=== PATIENT | female | born 1965 | race Caucasian/White ===

== ENCOUNTER 2017-07-29 09:35 | Emergency (ER) | payer MEDICAID ==
[2017-07-29] MEDS ORDERED: fentaNYL 100 MCG/2 ML INJ IVP ONE (10:18)
[2017-07-29] MEDS ORDERED: KETOROLAC 15 MG/1 ML SDV IVP ONE (10:20)
[2017-07-29] MEDS ORDERED: LET GEL TOPICAL 1 EA SYR TP ONE (10:20)
--- NOTE | 2017-07-29 10:21 | EDPHY ---
H & P Stated Complaint: fall, L rib, L knee, R wrist pain Time Seen by Provider: 07/29/17 09:51 HPI/ROS: CHIEF COMPLAINT: trip and fall HISTORY OF PRESENT ILLNESS: 51-year-old female presents to the emergency department by private vehicle after mechanical trip and fall today while walking her dog. Patient reports falling onto her left side falling onto her elbow which dug into her left lateral chest wall. Pt reports she had immediate left sided rib pain, worse with movement and worse with deep breath. Pt states she struck her head against her hand as she fell. No LOC, she remembers the entire accident. Pt denies neck pain. Pt reports immediate nausea and lightheadedness after the fall. She got up after the fall and walked home, then drove herself to the ER. Pt with an abrasion to her left knee. Tetanus is up to date. She also complains of right wrist pain. She is right hand dominant. Not anticoagulated. REVIEW OF SYSTEMS: A comprehensive 10 point review of systems is otherwise negative aside from elements mentioned in the history of present illness. Source: Patient Exam Limitations: No limitations - Personal History LMP (Females 10-55): Over 28 Days Ago Current Tetanus Diphtheria and Acellular Pertussis (TDAP): Yes - Medical/Surgical History Hx Asthma: No Hx Chronic Respiratory Disease: No Hx Diabetes: No Hx Cardiac Disease: No Hx Renal Disease: No Hx Cirrhosis: No Hx Alcoholism: No Hx HIV/AIDS: No Hx Splenectomy or Spleen Trauma: No Other PMH: denies - Social History Smoking Status: Never smoked - Physical Exam Exam: General Appearance: Alert, no distress, talking appropriately, comfortable. Head: Atraumatic without scalp tenderness or obvious injury Eyes: Pupils equal, round, reactive to light, EOMI, no trauma, no injection. Ears: Clear bilaterally, no perforation, no hemotympanum Nose: Atraumatic, no rhinorrhea, no septal hematoma Neck: The cervical spine is non-tender and there is no pain or neurologic deficits with active range of motion. Cardiovascular: Heart is regular rate and rhythm without murmur. Good capillary refill all extremities. Chest: Left lower anterior lateral chest wall/rib tenderness to palpation. Atraumatic, equal bilateral breath sounds. Gastrointestinal: Soft, non-tender, non-distended. No rebound, guarding, or peritoneal signs. There is no evidence of external or internal trauma. Back:There is no thoracic or lumbar spine or paraspinal tenderness. Extremities: Right wrist with mild tenderness to snuff box. There is full active range of motion of the joints. Neurological: The patient has normal DTRs and non-focal Cranial nerves, motor, sensory, and cerebellar exam Skin: superficial abrasion to left knee. Constitutional: Initial Vital Signs Temperature (C) 36.7 C 07/29/17 09:38 Heart Rate 75 07/29/17 09:38 Respiratory Rate 20 07/29/17 09:38 Blood Pressure 124/87 H 07/29/17 09:38 O2 Sat (%) 95 07/29/17 09:38 O2 Delivery Mode Room Air Allergies/Adverse Reactions: No Known Allergies Allergy (Unverified 07/29/17 09:41) Home Medications: Medication Instructions Recorded Hydrocodone/APAP 5/325 [Grandy 1 tab PO Q4H PRN #14 tab 07/29/17 5/325] Medical Decision Making - Diagnostics Imaging Results: Imaging Impressions Ribs w/Chest X-Ray 07/29/17 10:18 Impression: Fractures of the left inferolateral 10th (and possible inferolateral 11th) ribs. There is no pleural effusion or pneumothorax. Wrist X-Ray 07/29/17 10:20 Impression: Negative left wrist radiographs. Imaging: I viewed and interpreted images myself ED Course/Re-evaluation: Right wrist x-ray shows no evidence of fracture, patient is placed in a thumb spica Velcro splint and given Ortho for follow-up. He patient has a left 10th and moving 11th rib fracture. No evidence of pneumothorax on chest x-ray. Patient was given a dose of IV Toradol. She is discharged home with an incentive spirometer and a prescription for Grandy. Patient has normal vital signs, no abdominal pain. She has been given return precautions and is comfortable with plan to be discharged home. Differential Diagnosis: The differential diagnosis for the patient's trauma included but was not limited to intracranial injury, long bone and pelvic bone fractures, spinal injury, intra-abdominal injury, and intra-thoracic injury. - Data Points Medications Given: Discontinued Medications Fentanyl (Sublimaze) 50 mcg IVP EDNOW ONE Stop: 07/29/17 10:19 Last Admin: 07/29/17 10:23 Dose: 50 mcg Ketorolac Tromethamine (Toradol) 15 mg IVP EDNOW ONE Stop: 07/29/17 10:21 Last Admin: 07/29/17 10:23 Dose: 15 mg Tetracaine/Epinephrine/Lidocaine (Let Gel Topical) 1 ea TP EDNOW ONE Stop: 07/29/17 10:21 Last Admin: 07/29/17 10:23 Dose: 1 ea Departure - Departure Disposition: Home, Routine, Self-Care Clinical Impression: Right wrist sprain Qualifiers: Encounter type: initial encounter Qualified Code(s): S63.501A - Unspecified sprain of right wrist, initial encounter Left rib fracture Qualifiers: Encounter type: initial encounter Rib fracture type: multiple ribs Fracture type: closed Qualified Code(s): S22.42XA - Multiple fractures of ribs, left side , initial encounter for closed fracture Minor head injury without loss of consciousness Qualifiers: Encounter type: initial encounter Qualified Code(s): S09.90XA - Unspecified injury of head, initial encounter Condition: Good Instructions: Wrist Injury (ED), Rib Fracture (ED), Head Injury (ED) Additional Instructions: Rest, ice to your sore areas. Wear velcro wrist splint for 5-7 days. Follow up with the orthopedist for any continued wrist pain in 5-7 days. Take 600mg of ibuprofen every 8 hours with food. Take norco for severe pain. Use incentive spirometer 10 times an hour while awake. Cough and deep breath frequently. Return to the emergency department for any forceful vomiting, confusion, altered gait, fevers, cough. Referrals: Neeraj Rojas MD [Medical Doctor] - As per Instructions (Orthopedist on-call) Terri Mckeon MD [Primary Care Provider] - Follow Up Only If Needed Prescriptions: Hydrocodone/APAP 5/325 [Grandy 5/325] 1 tab PO Q4H PRN #14 tab PRN Reason: Pain, Moderate
[2017-07-29 12:34] VITALS: BP 129/97; PULSE 71; RESP 16; TEMP 97.5; O2SAT 97
== END 2017-07-29 12:35 | disposition home or self-care (01) ==
DX: S22.42XA Multiple fractures of ribs, left side, initial encounter for closed fracture (principal); S63.501A Unspecified sprain of right wrist, initial encounter; S09.90XA Unspecified injury of head, initial encounter; W01.0XXA Fall on same level from slipping, tripping and stumbling without subsequent striking against object, initial encounter; Y99.8 Other external cause status; Y93.89 Activity, other specified
CPT/HCPCS: 96374; J1885; J3010; L3807

== ENCOUNTER 2017-08-03 16:15 | Emergency (ER) | payer MEDICAID ==
[2017-08-03 16:48] VITALS: TEMP 97.9
--- NOTE | 2017-08-03 17:44 | EDPHY ---
H & P Stated Complaint: DX rib fx last week from fall;today bloated w/sharp upper abd pain - Personal History LMP (Females 10-55): Post Menopausal Current Tetanus Diphtheria and Acellular Pertussis (TDAP): Yes - Medical/Surgical History Hx Asthma: No Hx Chronic Respiratory Disease: No Hx Diabetes: No Hx Cardiac Disease: No Hx Renal Disease: No Hx Cirrhosis: No Hx Alcoholism: No Hx HIV/AIDS: No Hx Splenectomy or Spleen Trauma: No Other PMH: denies - Social History Smoking Status: Never smoked Time Seen by Provider: 08/03/17 17:43 HPI/ROS: CHIEF COMPLAINT: epigastric abdominal pain HISTORY OF PRESENT ILLNESS: 51-year-old female arrives via private vehicle complaining of epigastric discomfort, right upper quadrant and right lower chest pain since this afternoon. She was seen emergency department 4 days ago after seen mechanical fall was noted to have a left sided rib fractures. She has been using her oxycodone as prescribed has also been using Dulcolax had a last bowel movement this morning. Passing gas as normal. No nausea or vomiting. No dyspnea. Pain is reproducible with palpation. PRIMARY CARE PROVIDER: REVIEW OF SYSTEMS: A ten point review of systems was performed and is negative with the exception of the items mentioned in the HPI PAST MEDICAL & SURGICAL HISTORY: No history of abdominal surgeries beyond C- section SOCIAL HISTORY: nonsmoker no drug use PHYSICAL EXAM (Prior to examination, patient consented to physical exam, hands were washed and my usual and customary physical exam procedures followed) 1) GENERAL: Well-developed, well-nourished, alert and oriented. Appears uncomfortable 2) HEAD: Normocephalic, atraumatic 3) HEENT: Pupils equal, round, reactive to light bilaterally. Sclera anicteric. 4) NECK: Full range of motion, no meningeal signs. 5) LUNGS: Clear auscultation bilaterally, no wheezes, no rhonchi, no retractions. 6) HEART: Regular rate and rhythm, no murmur, no heave, no gallop. 7) ABDOMEN: tender to palpation epigastrium and right upper quadrant, negative McBurney's, negative Rose's, negative Rovsing's, negative peritoneal sign, no signs of trauma. No crepitus. 8) MUSCULOSKELETAL: Moving all extremities, no focal areas of tenderness, no obvious trauma. No peripheral edema or discoloration. 9) BACK: No CVA tenderness, no midline vertebral tenderness, no fluctuance, no step-off, no obvious trauma, no visual or palpable abnormality. 10) SKIN: No rash, no petechiae. 11) Psychiatric: Patient is oriented X 3, there is no agitation. DIFFERENTIAL DIAGNOSIS: in no particular order including but not limited to acute cholecystitis, liver contusion, liver fracture, atelectasis, constipation , acute pancreatitis (Gabino Hooks) Constitutional: Initial Vital Signs Temperature (C) 36.6 C 08/03/17 16:45 Heart Rate 72 08/03/17 16:45 Respiratory Rate 18 08/03/17 16:45 Blood Pressure 135/89 H 08/03/17 16:45 O2 Sat (%) 98 08/03/17 16:45 O2 Delivery Mode Room Air Allergies/Adverse Reactions: No Known Allergies Allergy (Verified 08/03/17 16:44) Home Medications: Medication Instructions Recorded Hydrocodone/APAP 5/325 [[place] 1 tab PO Q4H PRN #14 tab 07/29/17 5/325] Medical Decision Making - Diagnostics Imaging Results: Imaging Impressions Abdomen CT 08/03/17 18:51 Impression: 1. Nondisplaced left 9th rib fracture (numbering with hypoplastic 12th ribs). 2. No other acute findings in the abdomen or pelvis. 3. Additional findings, as above. Findings discussed with Susana Hooks PA-C, on August 03, 2017 at 1939. Abdomen Ultrasound 08/03/17 18:52 Impression: 1. No acute findings 2. Mild fatty infiltration of the liver. 3. Additional findings as above. Findings discussed with Marie Hooks today at 2004 hours. Images reviewed by myself (Gabino Hooks) ED Course/Re-evaluation: 6:30 p.m.: Informed by the nurses that the patient had passed a large amount of flatus and is feeling improvement. I re-examined the patient at this time and she states that she is feeling improvement but still would like imaging studies. She remains tender to palpation right upper quadrant. 820 p.m.: Re-evaluation, discussed her negative imaging results. Re-examined her abdomen which is soft no guarding or rebound. I think the patient can be discharged. Doubt acute surgical abdominal pathology. Doubt acute cholecystitis, doubt liver contusion or fracture. She feels comfortable being discharged. (Gabino Hooks) I did not see this patient while she was in the emergency department. However her care was discussed with the PA while the patient was in the department. I agree with treatment plan and management (Khoa Galeano) - Data Points Laboratory Results: Laboratory Results 08/03/17 18:00 08/03/17 18:00 08/03/17 08/03/17 18:00 18:00 WBC 9.08 10^3/uL 10^3/uL (3.80-9.50) RBC 4.64 10^6/uL 10^6/uL (4.18-5.33) Hgb 15.0 g/dL g/dL (12.6-16.3) Hct 42.8 % % (38.0-47.0) MCV 92.2 fL fL (81.5-99.8) MCH 32.3 pg pg (27.9-34.1) MCHC 35.0 g/dL g/dL (32.4-36.7) RDW 11.7 % % (11.5-15.2) Plt Count 251 10^3/uL 10^3/uL (150-400) MPV 10.2 fL fL (8.7-11.7) Neut % (Auto) 67.0 % % (39.3-74.2) Lymph % (Auto) 25.9 % % (15.0-45.0) [place] % (Auto) 4.7 % % (4.5-13.0) Eos % (Auto) 1.4 % % (0.6-7.6) Baso % (Auto) 0.6 % % (0.3-1.7) Nucleat RBC Rel Count 0.0 % % (0.0-0.2) Absolute Neuts (auto) 6.08 10^3/uL 10^3/uL (1.70-6.50) Absolute Lymphs (auto) 2.35 10^3/uL 10^3/uL (1.00-3.00) Absolute Monos (auto) 0.43 10^3/uL 10^3/uL (0.30-0.80) Absolute Eos (auto) 0.13 10^3/uL 10^3/uL (0.03-0.40) Absolute Basos (auto) 0.05 10^3/uL 10^3/uL (0.02-0.10) Absolute Nucleated RBC 0.00 10^3/uL 10^3/uL (0-0.01) Immature Gran % 0.4 % % (0.0-1.1) Immature Gran # 0.04 10^3/uL 10^3/uL (0.00-0.10) Sodium 136 mEq/L mEq/L (134-144) Potassium 4.0 mEq/L mEq/L (3.5-5.2) Chloride 102 mEq/L mEq/L (97-110) Carbon Dioxide 22 mEq/l mEq/l (22-31) Anion Gap 12 mEq/L mEq/L (8-16) BUN 19 mg/dL mg/dL (7-23) Creatinine 0.7 mg/dL mg/dL (0.6-1.0) Estimated GFR > 60 Glucose 105 mg/dL H mg/dL (70-100) Calcium 10.3 mg/dL mg/dL (8.5-10.4) Total Bilirubin 0.5 mg/dL mg/dL (0.1-1.4) Conjugated Bilirubin 0.2 mg/dL mg/dL (0.0-0.5) Unconjugated Bilirubin 0.3 mg/dL mg/dL (0.0-1.1) AST 21 IU/L IU/L (14-46) ALT 30 IU/L IU/L (9-52) Alkaline Phosphatase 87 IU/L IU/L (38-126) Total Protein 7.7 g/dL g/dL (6.3-8.2) Albumin 4.6 g/dL g/dL (3.5-5.0) Lipase 130 IU/L IU/L (23-300) Departure - Departure Disposition: Home, Routine, Self-Care Clinical Impression: Epigastric abdominal pain Condition: Good Instructions: Acute Abdominal Pain (ED) Additional Instructions: Seek immediate medical attention if you develop new or worsening symptoms, if you develop fevers, chills, inability to tolerate oral intake or any other symptoms that concerns you. Referrals: Terri Mckeon MD [Primary Care Provider] - 1-2 days without fail
[2017-08-03 18:09] LABS: % IMMATURE GRANULYOCYTES 0.4 % (0.0-1.1); ABSOLUTE IMMATURE GRANULOCYTES 0.04 10^3/uL (0.00-0.10); ADD DIFF? NO; ADD MORPH? NO; ADD SCAN? NO; ATYPICAL LYMPHOCYTE FLAG 0 (0-99); FRAGMENT RBC FLAG 0 (0-99); HEMATOCRIT 42.8 % (38.0-47.0); LEFT SHIFT FLG 0 (0-99); LIPEMIA HEMOLYSIS FLAG 90 (0-99); MEAN CELL HEMOGLOBIN 32.3 pg (27.9-34.1); MEAN CELL VOLUME 92.2 fL (81.5-99.8); MEAN PLATELET VOLUME 10.2 fL (8.7-11.7); PLATELET CLUMPS FLAG 10 (0-99); PLATELET COUNT 251 10^3/uL (150-400); RED BLOOD CELL COUNT 4.64 10^6/uL (4.18-5.33); RED CELL DISTRIBUTION WIDTH 11.7 % (11.5-15.2)
[2017-08-03 18:28] LABS: ALANINE AMINOTRANSFERASE 30 IU/L (9-52); ALBUMIN 4.6 g/dL (3.5-5.0); ALKALINE PHOSPHATASE 87 IU/L (38-126); ANION GAP 12 mEq/L (8-16); ASPARTATE AMINOTRANSFERASE 21 IU/L (14-46); BILIRUBIN,TOTAL 0.5 mg/dL (0.1-1.4); BILIRUBIN-CONJUGATED 0.2 mg/dL (0.0-0.5); BILIRUBIN-UNCONJUGATED 0.3 mg/dL (0.0-1.1); CALCIUM 10.3 mg/dL (8.5-10.4); CARBON DIOXIDE 22 mEq/l (22-31); CHLORIDE 102 mEq/L (97-110); CREATININE 0.7 mg/dL (0.6-1.0); GLOMERULAR FILTRATION RATE > 60; GLUCOSE 105 mg/dL (70-100); SODIUM 136 mEq/L (134-144); TOTAL PROTEIN 7.7 g/dL (6.3-8.2)
[2017-08-03] MEDS ORDERED: IOPAMIDOL (ISOVUE-300) 100 ML BTL ONE (19:00)
[2017-08-03 20:51] VITALS: BP 127/85; PULSE 77; RESP 16; O2SAT 95
== END 2017-08-03 20:49 | disposition home or self-care (01) ==
DX: R10.13 Epigastric pain (principal)
CPT/HCPCS: Q9967